=== PATIENT | male | born 1985 | race Caucasian/White ===

== ENCOUNTER 2021-10-31 14:46 | Outpatient (RCR) | payer OTHER | END 2021-11-21 | disposition home or self-care (01) | LOC: WSOH | DX: T24.20 Burn of second degree of unspecified site of lower limb, except ankle and foot (principal); L29.8 Other pruritus; I10 Essential (primary) hypertension; K21.9 Gastro-esophageal reflux disease without esophagitis; Z98.890 Other specified postprocedural states; Z90.89 Acquired absence of other organs; Y99.0 Civilian activity done for income or pay ==